=== PATIENT | male | born 1975 | race Two or more races ===

== ENCOUNTER 2022-05-19 17:35 | Emergency (ER) | payer OTHER ==
[~2022-05-19] VITALS: Ht 185.4 cm; Wt 122.7 kg
[2022-05-19 17:39] VITALS: BP 140/72
[2022-05-19] MEDS ORDERED: IBUPROFEN 800 MG TAB PO ONE (18:00)
== END 2022-05-19 18:12 | disposition home or self-care (01) ==
LOC: ER 17:35
DX: S00.93XA Contusion of unspecified part of head, initial encounter (principal); E11.9 Type 2 diabetes mellitus without complications; I10 Essential (primary) hypertension; E78.5 Hyperlipidemia, unspecified; Y04.8XXA Assault by other bodily force, initial encounter; Y93.89 Activity, other specified; Y92.89 Other specified places as the place of occurrence of the external cause; Y99.8 Other external cause status